=== PATIENT | male | born 1980 ===

== ENCOUNTER 2016-08-03 10:55 | Emergency (ER) | payer OTHER ==
[2016-08-03 11:24] VITALS: RESP 20; TEMP 97.9
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
[2016-08-03 12:35] VITALS: BP 122/80; PULSE 68
[2016-08-03 21:35] VITALS: O2SAT 99
== END 2016-08-03 12:35 | disposition home or self-care (01) ==
LOC: C.ER 10:55
DX: S01.511A Laceration without foreign body of lip, initial encounter (principal); L08.9 Local infection of the skin and subcutaneous tissue, unspecified; Y04.0XXA Assault by unarmed brawl or fight, initial encounter; Y93.9 Activity, unspecified; Y92.9 Unspecified place or not applicable